=== PATIENT | male | born 1950 | race Caucasian/White ===

== ENCOUNTER 2016-10-24 16:19 | Emergency (ER) | payer OTHER ==
[~2016-10-24] VITALS: Ht 177.8 cm; Wt 124.1 kg
[~2016-10-24 16:19] MED LIST: LEVAQUIN500 MG PO; PERCOCET 5/31 TABLET PO
[2016-10-24] MEDS ORDERED: PERCOCET 5/31 TABLET PO (16:45)
[2016-10-24 16:56] VITALS: BP 166/77
== END 2016-10-24 16:57 | disposition home or self-care (01) ==
LOC: EME 16:19
DX: S43.401A Unspecified sprain of right shoulder joint, initial encounter (principal); Z96.659 Presence of unspecified artificial knee joint; Z87.891 Personal history of nicotine dependence; W19.XXXD Unspecified fall, subsequent encounter
CPT/HCPCS: 99281; 99283

== ENCOUNTER 2016-11-05 08:55 | Emergency (ER) | payer OTHER ==
[~2016-11-05] VITALS: Ht 175.3 cm; Wt 127.8 kg
[2016-11-05 09:03] VITALS: BP 124/92
[2016-11-05] MEDS ORDERED: ENDOCET 5-3251 EACH PO (09:33)
[2016-11-05] MEDS ORDERED: LIDODERM 5% P1 PATCH TD (10:04)
[2016-11-05] MEDS ORDERED: NAPROSYN500 MG PO (10:04)
[2016-11-05] MEDS ORDERED: BACLOFEN10 MG PO (10:04)
[2016-11-05] MEDS ORDERED: LORTAB 10-3251 EACH PO (10:04)
[2016-11-05] MEDS ORDERED: TRAMADOL HCL50 MG PO (10:04)
== END 2016-11-05 10:18 | disposition home or self-care (01) ==
LOC: EME 08:55
DX: G89.29 Other chronic pain (principal); M25.511 Pain in right shoulder; Z95.5 Presence of coronary angioplasty implant and graft; I10 Essential (primary) hypertension
CPT/HCPCS: 99281; 99283; J1885